=== PATIENT | male | born 1980 | race Two or more races ===

== ENCOUNTER 2017-04-19 20:39 | Emergency (ER) | payer BC ==
[2017-04-19] MEDS ORDERED: Sodium Chloride 0.9% 10 ML Syringe FLUSH PRN (20:48)
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
[2017-04-19 20:57] VITALS: BP 131/85
[2017-04-19] MEDS ORDERED: Sodium Chloride 0.9% 1,000 ML IV ONE (22:12)
[2017-04-19] MEDS: Acetaminophen 325 MG Tab PO ONE ×2 (23:26→23:31)
--- NOTE | 2017-04-20 20:01 | CT ---
Head CT Technique: Multiple axial sections through the brain were obtained. Intravenous contrast was not utilized. Comparison: No prior intracranial imaging. Findings: Ventricles along with basal cisterns and sulci over the convexities are within normal limits. Mild soft tissue density seen within the posterior left scalp presumably due to soft tissue swelling. No abnormal parenchymal densities are seen. No evidence of intracranial hemorrhage. No midline shift or mass effect is seen. Bone window settings were reviewed which show air-fluid levels and mucosal thickening within the maxillary sinuses and ethmoid sinuses as well as sphenoid sinus. Partially visualized comminuted nasal bone fracture is seen. Impression: 1. Comminuted nasal bone fracture. This is most likely old. 2. Sinus findings with air-fluid levels suggesting the possibility of acute sinusitis. 3. No acute intracranial abnormality is identified. Diagnostic code #3 Agree with preliminary report issued by [facility] ([facility] preliminary report dictated on 04/19/17, 10:24 PM Central Time)
--- NOTE | 2017-04-20 20:01 | CT ---
CT cervical spine Technique: Multiple axial sections were obtained from above C1 inferiorly to the lower T1 vertebral level. Reconstructed sagittal and coronal images were reviewed. Comparison: No prior cervical spine exam. Findings: Vertebral body heights and disc spaces are preserved. Very slight posterior spurring is noted at C4-C5. Vertebral bodies and posterior arches are intact with no fracture being seen. No bony central or bony neural foraminal stenosis is seen. No abnormal subluxation is seen. Impression: 1. Minimal degenerative change. Nothing acute is appreciated on CT study of the cervical spine. Diagnostic code #2 I agree with preliminary report issued by [facility] ([facility] preliminary report dictated on 04/19/17, 10:25 PM Central Time)
== END 2017-04-19 23:40 | disposition home or self-care (01) ==
LOC: JD.ED 20:39
DX: S01.511A Laceration without foreign body of lip, initial encounter (principal); F10.129 Alcohol abuse with intoxication, unspecified; M79.604 Pain in right leg; R22.0 Localized swelling, mass and lump, head; Y04.2XXA Assault by strike against or bumped into by another person, initial encounter; Y90.6 Blood alcohol level of 120-199 mg/100 ml
CPT/HCPCS: 36415; 70450; 72125; 80053; 85025; 96360; 99285; G0480; J7040; J7050; 99284; A9270-GY

== ENCOUNTER 2019-10-23 16:02 | Emergency (ER) | payer BC ==
[2019-10-23 16:18] VITALS: BP 126/79; PULSE 69
[2019-10-23] MEDS ORDERED: Diphtheria,Pertussis(Acell),Tetanus Vaccine 0.5 ML Syringe IM ONE (17:00)
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
== END 2019-10-23 17:30 | disposition home or self-care (01) ==
LOC: JD.ED 16:02
DX: S61.012A Laceration without foreign body of left thumb without damage to nail, initial encounter (principal); Z23 Encounter for immunization; W26.8XXA Contact with other sharp object(s), not elsewhere classified, initial encounter; Y92.89 Other specified places as the place of occurrence of the external cause; Y99.0 Civilian activity done for income or pay
CPT/HCPCS: 90471; 90715; 99282-25; 99283

== ENCOUNTER 2025-01-07 09:24 | Emergency (ER) | payer SELFPAY ==
[2025-01-07] MEDS ORDERED: Sodium Chloride 0.9% 10 ML Syringe FLUSH PRN (09:41)
[2025-01-07 09:57] LABS: BASOPHILS ABSOLUTE AUTO 0.0 K/mm3 (0.0-0.2); BASOPHILS PERCENT AUTO 0.5 % (0.0-1.0); EOSINOPHILS ABSOLUTE AUTO 0.1 K/mm3 (0.0-0.4); EOSINOPHILS PERCENT AUTO 1.9 % (0.0-6.0); IMMATURE GRAN ABSOLUTE AUTO 0.02 K/mm3 (0.00-0.05); IMMATURE GRAN PERCENT AUTO 0.3 % (0.0-0.4); LYMPHOCYTES ABSOLUTE AUTO 2.0 K/mm3 (1.0-4.8); LYMPHOCYTES PERCENT AUTO 30.7 % (24.0-44.0); MEAN PLATELET VOLUME 10.9 fl (9.4-12.4); MONOCYTES ABSOLUTE AUTO 0.5 K/mm3 (0.0-0.8); MONOCYTES PERCENT AUTO 8.1 % (0.0-8.0); NEUTROPHILS ABSOLUTE AUTO 3.8 K/mm3 (1.8-7.7); NEUTROPHILS PERCENT AUTO 58.5 % (41.0-71.0); NRBC ABSOLUTE 0.00 (0.00-0.02); NRBC PERCENT 0.0 % (0.0-0.2); PLATELET COUNT,PLT 194 K/mm3 (150-400); RED BLOOD CELL COUNT 4.66 M/mm3 (4.52-5.90); WHITE BLOOD CELL COUNT,WBC 6.42 K/mm3 (3.9-11.3)
[2025-01-07 10:25] LABS: A/G RATIO 1.1 (1-2); ALANINE AMINOTRANSFERASE,ALT 31.0 U/L (16-63); ASPARTATE AMNIOTRANSFERASE,AST 19.0 U/L (15-37); BILIRUBIN TOTAL 0.5 mg/dL (0.2-1.0); BLOOD UREA NITROGEN,BUN 25.0 mg/dL (7-18); CARBON DIOXIDE,CO2 26.0 mEq/L (21-32); CHLORIDE,CL 104.0 mEq/L (98-107); CREATININE 1.1 mg/dL (0.7-1.3); EST CRCL DRUG DOSING (CG) 79.29 mL/min; ESTIMATED GFR 84.0 mL/min (>60); GLUCOSE RANDOM 96.0 mg/dL (70-99); PHOSPHORUS 3.5 mg/dL (2.6-4.7); POTASSIUM,K 3.9 mEq/L (3.5-5.1); PROTEIN TOTAL,TP 7.8 g/dl (6.4-8.2); SODIUM,NA 140.0 mEq/L (136-145); TROPONIN I HIGH SENSITIVITY 5.0 pg/mL (<=76)
[2025-01-07 11:55] VITALS: PULSE 60
[2025-01-07 12:05] VITALS: BP 111/80
== END 2025-01-07 12:05 | disposition home or self-care (01) ==
LOC: JD.ED 09:24
DX: R07.9 Chest pain, unspecified (principal)
CPT/HCPCS: 36415; 71045; 71045-26; 80053; 83735; 84100; 84484; 85025; 93005; 99285